=== PATIENT | male | born 1955 | race Caucasian/White ===

== ENCOUNTER → 2022-03-10 10:27 | Outpatient (BNVA) | payer MEDICARE, SELFPAY | PROVIDERS: PCP Physician Assistant Medical; Referring Provider Internal Medicine; Visit Provider Internal Medicine | DX: I48.0 Paroxysmal atrial fibrillation (principal); R60.0 Localized edema; R03.0 Elevated blood-pressure reading, without diagnosis of hypertension; Z79.01 Long term (current) use of anticoagulants | CPT/HCPCS: 93005; 99212 ==

== ENCOUNTER → 2022-03-22 14:43 | Outpatient (REF) | payer MEDICARE, SELFPAY ==
--- NOTE | 2022-03-22 14:50 | HM_ITS ---
Conclusion: 1. Patient was monitored for total period of 19 days and 23 hours 2. Baseline was normal sinus rhythm with average heart rate of 79 beats per minute 3. 1 episode of wide complex run of 7 beats, could represent 7 beat run of AFib with aberrancy 4. Total of 13,333 PACs accounting for 0.96% of total beats accounting for occasional PACs 5. Very short episodes of supraventricular tachycardia longest lasting 7 beats 6. No patient reported events MTDD
== END ==
LOC: HO.CARD 14:43
PROVIDERS: PCP Internal Medicine; Visit Provider Internal Medicine
DX: I48.0 Paroxysmal atrial fibrillation (principal)
CPT/HCPCS: 93246

== ENCOUNTER → 2022-05-04 15:08 | Outpatient (BNVA) | payer MEDICARE, SELFPAY | PROVIDERS: PCP Internal Medicine; Referring Provider Internal Medicine; Visit Provider Internal Medicine | DX: I48.0 Paroxysmal atrial fibrillation (principal); Z79.01 Long term (current) use of anticoagulants; Z79.899 Other long term (current) drug therapy | CPT/HCPCS: 99212 ==

== ENCOUNTER → 2022-12-27 12:41 | Outpatient (BNVA) | payer MEDICARE, SELFPAY | PROVIDERS: PCP Internal Medicine; Referring Provider Internal Medicine; Visit Provider Internal Medicine | DX: I48.0 Paroxysmal atrial fibrillation (principal) | CPT/HCPCS: 93005; 99212 ==

== ENCOUNTER → 2023-12-16 12:52 | Outpatient (REF) | payer MEDICARE, OTHER, SELFPAY ==
--- NOTE | 2023-12-16 12:58 | HM_ITS ---
* Total monitoring time 3 days. * Underlying rhythm is sinus with an average ventricular rate of 78/Min. * Rare supraventricular ectopy. * Rare ventricular ectopy with couplets and 1 triplet. * No significant pauses or AV blocks. * No patient markers or diary events. MTDD
--- NOTE | 2023-12-16 12:58 | CA_ITS ---
Transthoracic Echocardiogram Patient (Last, First, Middle): Moises Olivarez, Gender: Male Date of : 1955 Age: 68 Procedure Date: 12/16/2023 Procedure Type: Transthoracic Echocardiogram Location: OP Height: 170.18 cm Weight: 89.36 kg BSA: 2.01 m2 Heart Rate: bpm BP: 148 / 80 mmHg [employer] Operations Manager: TO Referring MD: Alcides Mireles MD Symptoms: I48.0 - Paroxysmal atrial fibrillation Study Quality: Fair/Contrast Conclusions: - Normal left ventricular size, thickness, systolic function, and wall motion. The visually estimated ejection fraction is between 55-60%. Diastolic function is normal for age. - Normal right ventricular cavity size and systolic function. - The left atrium is normal in size. The right atrium is normal in size. - There is mild dilatation of the sinuses of Valsalva measuring 3.86 cm and mild dilatation of the ascending aorta measuring 4.00 cm. Findings Procedure Information Contrast agent, definity, is being given per protocol without apparent complications. Left Ventricle Normal left ventricular size, thickness, systolic function, and wall motion. The visually estimated ejection fraction is between 55-60%. Diastolic function is normal for age. Right Ventricle Normal right ventricular cavity size and systolic function. Atria The left atrium is normal in size. The right atrium is normal in size. Aortic Valve There is a normal trileaflet aortic valve. There is mild calcification of the aortic valve. There is mild aortic valve stenosis. There is trace (trivial) aortic valve regurgitation. Mitral Valve The mitral valve appears normal. There is no mitral valve regurgitation. There is no mitral valve stenosis. Pulmonic Valve The pulmonic valve is likely normal. Tricuspid Valve Normal tricuspid valve structure. There is no tricuspid valve regurgitation. Normal right atrial pressure. There is no evidence of pulmonary hypertension. Great Vessels There is mild dilatation of the sinuses of Valsalva measuring 3.86 cm and mild dilatation of the ascending aorta measuring 4.00 cm. The visualized portions of the pulmonary artery and branches are normal. Venous The inferior vena cava is normal in size and collapses greater than 50% with inspiration. Pericardium/Pleural There is no evidence of pericardial effusion. Prior Study Comparison No prior study available for comparison. Measurements 2D Linear Measurements LVOT Diam: 2.30 3.0+(-)1.3 cm 2D Systolic Function EF 4C: 67.10 >55% EF 2C: 60.20 >55% EF BiP: 64.50 >55% Mitral Valve MV Pk E: 0.62 MV PK A: 0.68 MV Decel Time: 196.00 E/A: 0.90 E'Lateral: 9.79 E'Medial: 7.29 E/E' Med: 8.50 E/E' Lat: 6.30 PHT: 57.00 MVA PHT: 3.86 Decel Emery: 3.18 Aortic Valve AoV Pk Gelacio: 2.09 AoV Mn Gelacio: 1.40 AoV VTI: 0.43 AoV Pk Grad: 17.00 Aov Mn Grad: 9.00 EDMAR Cont.VTI: 1.54 LVOT LVOT Pk Gelacio: 0.74 LVOT Mn Gelacio: 0.47 LVOT VTI: 0.16 LVOT Pk Grad: 2.00 LVOT Mn Grad: 1.00 LVOT Diam: 2.30 LVOT Area: 4.15 Diastolic Function MV Pk E: 0.62 MV Pk A: 0.68 E/A: 0.90 E'Medial: 7.29 E/E' Med: 8.50 E' Laterial: 9.79 E/E' Lat: 6.30 Right Ventricle TAPSE (mm): 23.40 TVS' Gelacio: 12.60 Tricuspid Valve TR Pk Gelacio: 2.21 TR Pk Grad: 20.00 RA Press: 3.00 RVSP: 23.00 Great Vessels Aorta Sinus of Valsalva: 3.86 2.0-3.[address] [place]: 2.83 1.7-3.4 cm Ao Asc: 4.00 2.1-3.4 cm Updated in Other Vendor System with Status of Final Hoem Ervin MD electronically signed on 12/18/2023 3:35:18 PM with status of Final
== END ==
LOC: HO.CARD 12:52
PROVIDERS: PCP Internal Medicine; Visit Provider Internal Medicine
DX: I48.0 Paroxysmal atrial fibrillation (principal)
CPT/HCPCS: 93242; 93306; Q9957

== ENCOUNTER → 2023-12-16 12:58 | Outpatient (BNV) | payer MEDICARE, OTHER, SELFPAY | PROVIDERS: PCP Internal Medicine; Visit Provider Internal Medicine Cardiovascular Disease | DX: I47.10 Supraventricular tachycardia, unspecified (principal) | CPT/HCPCS: 93244; 93306 ==

== ENCOUNTER 2023-12-27 12:49 | Outpatient (AMB) | payer MEDICARE, OTHER, SELFPAY ==
--- NOTE | 2023-12-27 12:52 | A.OFFVIS_ITS ---
Intake Vital Signs 12/27/23 12:54 Height 5 ft 8 in Weight 203 lb 4.259 oz BMI 30.9 BP 166/86 H Blood Pressure Location Lt brachial Position Sitting Pulse 71 Intake Visit Reasons: 1 year follow up w/ echo holter Intake Note: 1 year follow up w/ EKG Final Assembly Worker Required: No Accompanied by: Self / Same As Patient Allergies No Known Allergies Allergy (Verified 12/27/23 12:55) Medication List - Last Reconciled 12/27/23 by Alcides Mireles MD aspirin (Adult Aspirin Regimen) 81 mg PO DAILY multivitamin 1 tab PO DAILY HPI HPI Comments History of Present Illness Details Moises returns for follow-up regarding atrial fibrillation. To recall, in 2021, he was admitted to [facility] with primary GI issues. He had gallbladder issues and had ERCP/sphincterotomy and stent placement and ultimately had a laparoscopic cholecystectomy. Subsequently, small bowel obstruction requiring exploratory laparotomy. Overall had a complicated hospital course. In that process, he had atrial fibrillation with rapid rate as well as hypotension. Underwent urgent cardioversion. Then converted to sinus rhythm. He was put on amiodarone. Also on Eliquis. Eventually got discharged. Subsequently, the medications got stopped. Clinically, it does not have any cardiac symptoms. Otherwise, known cardiac issues like coronary disease or myocardial infarction or cardiomyopathy. [facility] Surgical History H/O shoulder surgery History of resection of small bowel Hx of cholecystectomy Family History Mother Breast cancer Father CHF (congestive heart failure) Aortic aneurysm Social History Alcohol intake: current Alcohol intake frequency: a few times a week Alcohol type: beer Patient Tobacco Use Status: Former Tobacco user Quit Date: 2021 Years Smoked: 20 +/- Review of Systems Const Denies weakness ENT Denies dizziness Card Denies chest pain, Denies chest pain with activity, Denies syncope, Denies rapid heart rate, Denies pedal edema, Denies edema, Denies leg edema, Denies lightheadedness, Denies palpitations, Denies dyspnea, Denies dyspnea on exertion and Denies orthopnea Resp Denies cough, Denies dyspnea and Denies dyspnea on exertion GI Denies hematochezia and Denies change in stool character Musc Denies abnormal gait, Denies muscle cramps, Denies muscle weakness, Denies numbness, Denies radiating pain into limb and Denies tingling Neuro Denies abnormal gait, Denies dizziness, Denies syncope, Denies numbness, Denies tingling and Denies weakness Endo Denies palpitations Physical Exam Vital Signs: Last Vital Signs Pulse 71 12/27/23 12:54 BP 166/86 H 12/27/23 12:54 BMI result Body Mass Index 30.9 Const General: comfortable and no acute distress Orientation/consciousness: patient oriented x3 HEENT Other: Unremarkable Head: Yes normal to inspection Neck Neck: Yes normal visual inspection Chest Chest palpation & inspection: normal inspection of the chest Resp Auscultation: clear to auscultation bilaterally Cardio Palpation: normal PMI Heart sounds: S1 normal heart sound present, S2 normal heart sound present, no gallops, no murmurs and no rubs GI Palpation (GI): Soft to palpation Back/Spine/Pelvis Other: unremarkable Skin General skin exam: no rashes or lesions noted Neuro General: patient oriented x3 Extrem General: Yes normal to inspection Psych Mental Status: mental status grossly normal Office Procedures EKG Details: EKG with sinus rhythm at 71/Min; no significant ST-T changes and otherwise unremarkable; [place]. [id number], Complete Assessment & Plan Assessment & Plan (1) PAF (paroxysmal atrial fibrillation): Code(s): I48.0 - Paroxysmal atrial fibrillation Plan: Echocardiogram from [facility] with LVEF of 55-60%. Right ventricle/atrium thought to be dilated. No significant valvular issues. In the more recent study from last month, LVEF 55-60% normal diastolic function. Atrial size was normal. Ascending aortic size borderline at 4 cm. In the most recent Holter, no evidence of any atrial fibrillation. Overall, 1 episode of atrial fibrillation in the setting of acute medical issues. In the absence of any recurrent issues, he is off amiodarone/anticoagulation. Avoid alcohol excess. In the past, we had recommended a small dose of beta-blockers but patient felt he would rather not take anything. (2) Elevated BP without diagnosis of hypertension: Code(s): R03.0 - Elevated blood-pressure reading, without diagnosis of hypertension Plan: Blood pressure seems to be on the higher side today. In prior trends, some normal readings and some elevated. Advised him to do home blood pressure readings. If these are on the higher side, may need to start some medications, preferably beta-blockers considering history of paroxysmal atrial fibrillation. He states he has an appointment with PCP in 2 weeks and he can follow-up on this issue. Coding Level of Care Code Est Pt Level 3 (59558) Diagnoses PAF (paroxysmal atrial fibrillation) I48.0 Elevated BP without diagnosis of hypertension R03.0 CPT Codes EKG - CPT: 66442-[id number], Complete ([id number])
[2023-12-27 12:54] VITALS: BP 166/86; PULSE 71; BMI 30.9
== END 2023-12-27 13:12 | disposition home or self-care (01) ==
PROVIDERS: PCP Internal Medicine; Visit Provider Internal Medicine
DX: I48.0 Paroxysmal atrial fibrillation (principal); R03.0 Elevated blood-pressure reading, without diagnosis of hypertension
CPT/HCPCS: 93010; 99213

== ENCOUNTER → 2023-12-27 12:49 | Outpatient (BNVA) | payer MEDICARE, OTHER, SELFPAY | PROVIDERS: PCP Internal Medicine; Visit Provider Internal Medicine | DX: I48.0 Paroxysmal atrial fibrillation (principal); R03.0 Elevated blood-pressure reading, without diagnosis of hypertension | CPT/HCPCS: 93005; 99212 ==

== ENCOUNTER → 2024-12-27 11:05 | Outpatient (BNVA) | payer MEDICARE, OTHER, SELFPAY | PROVIDERS: PCP Internal Medicine; Visit Provider Internal Medicine | DX: I48.0 Paroxysmal atrial fibrillation (principal); I25.10 Atherosclerotic heart disease of native coronary artery without angina pectoris; R03.0 Elevated blood-pressure reading, without diagnosis of hypertension; R07.2 Precordial pain; Z79.01 Long term (current) use of anticoagulants | CPT/HCPCS: 99212 ==

== ENCOUNTER → 2025-01-24 10:51 | Outpatient (REF) | payer MEDICARE, OTHER, SELFPAY ==
--- NOTE | 2025-01-24 10:54 | CA_ITS ---
Acquisition Time: 2025-01-24 11:35:31 Total Exercise Time: 00:04:31 Test Indications: CAD Medications: ASA ATORVASTATIN Protocol: KAL Max HR: 171 BPM 114% of Pred: 150 BPM Max BP: 165/68 mmHG Max Work Load: 5.5 METS Exercise Stress Test with exercise 4 mins 31 secs of Kal Protocol, reduced speed to 2.0mph at Stage 2, achieving 104% MPHR, with reports of SOB, leg discomfort, no chest pain, with isolated PACs and PVCs, with normotensive response to exercise. Without EKG changes meeting criteria for ischemia. In recovery, breathing returned to baseline. Echo imgaes obatined by tech at rest and post peak exercise. Definity contrast utilized. Test reviewed with Dr. Dotson. Referred By: Alcides Mireles Electronically Signed By: Arturo Garza
== END ==
LOC: HO.CARD 10:51
PROVIDERS: PCP Internal Medicine; Visit Provider Internal Medicine
DX: R07.2 Precordial pain (principal); I25.10 Atherosclerotic heart disease of native coronary artery without angina pectoris
CPT/HCPCS: 93350; Q9957

== ENCOUNTER → 2025-01-24 10:54 | Outpatient (BNV) | payer MEDICARE, OTHER, SELFPAY | PROVIDERS: PCP Internal Medicine | DX: I25.10 Atherosclerotic heart disease of native coronary artery without angina pectoris (principal); I49.1 Atrial premature depolarization; I49.3 Ventricular premature depolarization | CPT/HCPCS: 93016; 93018; 93350; 93352 ==